=== PATIENT | male | born 1980 | race Caucasian/White ===

== ENCOUNTER 2017-05-30 14:56 | Emergency (ER) | payer OTHER ==
[2017-05-30] MEDS ORDERED: Tetan/Diph/Pertus SYR(Tdap)* 0.5 ML SYR(BOOSTRIX) use SYR IM ONE (16:11)
--- NOTE | 2017-05-30 16:19 | RAD ---
INDICATION: Crush injury LEFT hand. Laceration at the base of the second and third metacarpals. Also pain at the thumb. COMPARISON: No relevant prior exams available on the [facility] for comparison. TECHNIQUE: AP, lateral, and oblique views LEFT hand. REPORT: Normal articular alignment. No cortical disruption or suspicious trabecular irregularity to suggest fracture. Nonfocal soft tissue swelling about the wrist and metacarpal region of the hand as well as the thumb. No subcutaneous emphysema or conspicuous foreign body evident. IMPRESSION: Soft tissue swelling without additional finding.
[2017-05-30] MEDS ORDERED: Lidocaine 2% PF * 5 ML VIAL INJ ONE (17:01)
[2017-05-30 18:09] VITALS: BP 140/92
--- NOTE | 2017-05-30 18:56 | UC ---
Jacob Larios Benjamin, scribed for Waleska Acevedo MD on 05/30/17 at 1841 . Hand/Wrist HPI - HPI Summary HPI Summary: 37yo male presents with a left hand crush injury today around 14:30. 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 Pt was able to dodge his head and his right hand out of the way but his left hand got caught underneath, causing his crush injury on the left hand and the laceration to the dorsum of his hand. Last tetanus unrecalled. Denies other injury. - History Of Current Complaint Chief Complaint: UCUpperExtremity Stated Complaint: HAND INJURY Time Seen by Provider: 05/30/17 16:29 Hx Obtained From: Patient ?: No Onset/Duration: Lasting Hours - 3 hours, Still Present Severity Currently: Mild Pain Intensity: 2 Pain Scale Used: 0-10 Numeric Character Of Pain: Throbbing Aggravating Factor(s): Movement, Lifting, Flexion, Extension Alleviating: Nothing Associated Signs And Symptoms: Positive: Swelling - Allergies/Home Medications Allergies/Adverse Reactions: Allergies Allergy/AdvReac Type Severity Reaction Status Date / Time Bee Venom Allergy Severe Anaphylatic Verified 05/30/17 15:28 Shock [place] Allergy Severe GI ISSUE Uncoded 05/30/17 15:28 PMH/Surg Hx/FS Hx/Imm Hx - Additional Past Medical History Additional PMH: Hearing loss. Left ankle fracture. right middle finger injury s/p surgery. Previously Healthy: No - See Additional PMHx - Surgical History Surgical History: Yes Surgery Procedure, Year, and Place: TUBES IN EARS A CHILD. Left ankle - Family History Known Family History: Negative: Cardiac Disease, Hypertension, Diabetes - Social History Occupation: Employed Full-time Lives: With Family Alcohol Use: Occasionally Substance Use Type: None Smoking Status (MU): Light Every Day Tobacco Smoker Type: Cigarettes Amount Used/How Often: 1/2 PPD - Immunization History Most Recent Influenza Vaccination: unknown Review of Systems Constitutional: Negative Skin: Other - 3cm laceration on the left dorsum of the hand Eyes: Negative ENT: Negative Respiratory: Negative Cardiovascular: Negative Gastrointestinal: Negative Genitourinary: Negative Motor: Negative Neurovascular: Negative Musculoskeletal: Negative Neurological: Negative Psychological: Negative All Other Systems Reviewed And Are Negative: Yes Physical Exam Triage Information Reviewed: Yes Appearance: Well-Appearing, No Pain Distress, Well-Nourished Vital Signs: Initial Vital Signs Temp 98.6 F 05/30/17 15:21 Pulse 72 05/30/17 15:21 Resp 18 05/30/17 15:21 Pulse Ox 99 05/30/17 15:21 Vital Signs Reviewed: Yes Eyes: Positive: Conjunctiva Clear ENT: Positive: Hearing grossly normal. Negative: Muffled/hoarse voice Neck: Positive: Supple, Nontender Respiratory: Positive: Lungs clear, Normal breath sounds, No respiratory distress, No accessory muscle use Cardiovascular: Positive: RRR, No Murmur, Pulses Normal Musculoskeletal: Positive: Strength Intact, ROM Intact, Other: - UCL ligaments of left thumb intact with stress Neurological: Positive: Alert, Muscle Tone Normal Psychological: Positive: Age Appropriate Behavior Skin: Positive: Other - 3cm laceration on the left dorsum of the hand, 0.5cm lac to DIP of left thumb Procedures - Laceration/Wound Repair 1 Location: Other - left hand Description: Linear Anesthesia: 2.0% Length, Depth and Shape: 3cm laceration on the left dorsum of the hand at base of first metacarpal Betadine Prep?: Yes Irrigated w/ Saline (ccs): 100 Laceration/Wound Explored: contaminated - "grease" from the engine motor, no FB noted. No tendons visualized in wound, full ROM of fingers Closure: Multilayer Suture Type: Nylon - 4-0 nylon, Vicryl - 4-0 Number of Sutures: 10 - external Layer Closure?: Yes - 2 vicryl sutures Sterile Dressing Applied?: Yes Diagnostics - Radiology Left Hand XR Xray Interpretation: No Acute Changes - IMPRESSION: Soft tissue swelling without additional finding. Radiology Interpretation Completed By: Radiologist Hand/Wrist Course/Dx - Course Course Of Treatment: Reviewed pt's medications list and allergies. - Differential Dx/Diagnosis Differential Diagnosis/HQI/PQRI: Abrasion, Contusion, Fracture, Other - laceration Provider Diagnoses: Crush injury. Hand laceration with sutures. Tetanus update. Tobacco Abuse Disorder. Discharge - Discharge Plan Condition: Stable Disposition: HOME Prescriptions: Cephalexin CAP* [Keflex 500 CAP*] 500 mg PO QID #40 cap Patient Education Materials: Diphtheria/Acellular Pertussis/Tetanus Vaccine ( By injection), Care For Your Stitches (ED), Laceration (ED) Referrals: Chris Arellano MD [Medical Doctor] - 4 Days (definite f/u for crush injury to hand and sutures ) Connor Willis MD [Primary Care Provider] - Additional Instructions: You have two absorbable sutures and 10 nylon sutures. The nylon sutures need to be removed in 7-10 days. See the hand specialist, Dr. Arellano, on 06/03. Call tomorrow (Saturday05/31/17) to arrange this. Take the antibiotic, cephalexin, as directed. Elevate your hand, use ice for the first 48 hrs, and rest your hand as much as possible to decrease the swelling. Keep the wound dry , watch for infection. Change the dressing every day and keep the wound covered at all times. Use a small amount of antibiotic ointment on the wound. Return to urgent care if you are unable to see the hand specialist as directed, or if you develop worsening symptoms, and then return for the suture removal. Your tetanus status was updated with a Tdap, and is good for 10 years. The documentation as recorded by the Jacob alexis Benjamin accurately reflects the service I personally performed and the decisions made by , Waleska Acevedo MD.
== END 2017-05-30 18:10 | disposition home or self-care (01) ==
LOC: UCEAST 14:56
DX: S67.22XA Crushing injury of left hand, initial encounter (principal); S61.422A Laceration with foreign body of left hand, initial encounter; W31.89XA Contact with other specified machinery, initial encounter; Y93.89 Activity, other specified; Y92.89 Other specified places as the place of occurrence of the external cause; Y99.9 Unspecified external cause status; Z23 Encounter for immunization; F17.210 Nicotine dependence, cigarettes, uncomplicated
CPT/HCPCS: 12042; 12052; 13132; 90471; 90715; 99212; G0463

== ENCOUNTER 2017-06-07 07:09 | Emergency (ER) | payer OTHER ==
[2017-06-07 07:15] VITALS: BP 114/69
[2017-06-07] MEDS ORDERED: Benzoin Compound STICK ONE (07:15)
--- NOTE | 2017-06-07 07:45 | UC ---
HPI Wound/Suture Re-check - HPI Summary HPI Summary: LACERATION LEFT HAND REPAIRED 05/30/17. HERE FOR SUTURE REMOVAL. WOUND HEALING WELL. NO DRAINAGE. 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 HAS BEEN APPLYING A BULKY DRESSING DAILY TO PROTECT THE AREA. - History Of Current Complaint Chief Complaint: UCLaceration Stated Complaint: SUTURE REMOVAL Time Seen by Provider: 06/07/17 07:33 Hx Obtained From: Patient Severity: Mild Pain Intensity: 0 Pain Scale Used: 0-10 Numeric - Allergies/Home Medications Allergies/Adverse Reactions: Allergies Allergy/AdvReac Type Severity Reaction Status Date / Time Bee Venom Allergy Severe Anaphylatic Verified 06/07/17 07:15 Shock [place] Allergy Severe GI ISSUE Uncoded 06/07/17 07:15 PMH/Surg Hx/FS Hx/Imm Hx - Additional Past Medical History Additional PMH: HEARING LOSS - Surgical History Surgical History: Yes Surgery Procedure, Year, and Place: TUBES IN EARS A CHILD. Left ankle - Family History Known Family History: Positive: None Negative: Cardiac Disease, Hypertension, Diabetes - Social History Alcohol Use: Weekly Alcohol Amount: 1 drink weekly Substance Use Type: None Smoking Status (MU): Heavy Every Day Tobacco Smoker Type: Cigarettes Amount Used/How Often: 1/2 PPD - Immunization History Most Recent Influenza Vaccination: unknown Most Recent Tetanus Shot: 05/30/17 Review of Systems Constitutional: Negative Skin: Other - HEALING LACERATION Respiratory: Negative Cardiovascular: Negative Gastrointestinal: Negative All Other Systems Reviewed And Are Negative: Yes Physical Exam Triage Information Reviewed: Yes Appearance: Well-Appearing, No Pain Distress, Well-Nourished Vital Signs: Initial Vital Signs Temp 97.5 F 06/07/17 07:11 Pulse 60 06/07/17 07:11 Resp 16 06/07/17 07:11 BP 114/69 06/07/17 07:11 Pulse Ox 97 06/07/17 07:11 Vital Signs Reviewed: Yes Eyes: Positive: Conjunctiva Clear ENT: Positive: Hearing grossly normal Neck: Positive: Supple Respiratory: Positive: No respiratory distress, No accessory muscle use Cardiovascular: Positive: Pulses Normal Abdomen Description: Positive: Soft Musculoskeletal: Positive: No Edema Neurological: Positive: Alert Psychological: Positive: Age Appropriate Behavior Skin: Positive: Other - LACERATION BACK OF LEFT HAND C/D/I. NON TENDER. SLIGHT SURROUNDING ERYTHEMA. EDGES WELL APPROXIMATED. Course/Dx - Differential Dx - Laceration/Wound Provider Diagnoses: SUTURE REMOVAL LEFT HAND Discharge - Discharge Plan Condition: Stable Disposition: HOME Patient Education Materials: Stitches Removal (ED) Referrals: Connor Willis MD [Primary Care Provider] - If Needed Additional Instructions: THE STERISTRIPS WILL FALL OFF ON THEIR OWN IN THE NEXT 1-2 WEEKS. DO NOT PUT ANY OINTMENT ON TOP OF THEM. DO NOT SUBMERGE IN WATER FOR PROLONGED PERIOD OF TIME. OKAY FOR BRIEF SHOWER AFTER 24 HOURS AND THEN BE SURE TO DRY COMPLETELY.
== END 2017-06-07 07:40 | disposition home or self-care (01) ==
LOC: UCEAST 07:09
DX: Z48.02 Encounter for removal of sutures (principal); Z72.0 Tobacco use
CPT/HCPCS: 99212; G0463

== ENCOUNTER → 2018-12-12 10:12 | Day surgery (SDC) | payer BC ==
[~2018-12-12 10:12] MED LIST: Acetaminophen TAB* 325 MG PO PRN; Buffered Lidocaine 1% SYRIN* 1 ML/SYRINGE INTRADERM ONE; Bupivacaine 0.5% W/EPI SDV* 30 ML VIAL ONE; DiMENhydriNATE IV* 50 MG/ML VIAL IV PUSH PRN; Lactated Ringers 1000 ML Bag* 1,000 ML IV SCH; Lidocaine 2% PF * 5 ML VIAL ONE; Midazolam* 1 MG/ML 2 ML VIAL (2 MG) ONE; Naloxone* 0.4 MG/ML 1 ML VIAL IV PRN; Propofol* 10 MG/ML 20 ML BTL ONE; ceFAZolin 2 GM PREMIX in ORs 2 GM/50 ML BAG IVPB ONE; fentaNYL* 50 MCG/ML 2 ML VIAL (100 MCG VIAL) IV PRN; fentaNYL* 50 MCG/ML 2 ML VIAL (100 MCG VIAL) ONE; oxyCODONE TAB* 5 MG TAB ONE; oxyCODONE TAB* 5 MG TAB PO PRN
[2018-12-12 15:58] VITALS: BP 131/81
--- NOTE | 2018-12-15 00:21 | OP ---
DATE OF OPERATION: 12/12/18 [facility] DATE OF : 76 SURGEON: Dr. Sudarshan Shrestha. DRY KILN OPERATOR: TERRA Pimentel. A physician urgent care physician assistant was required for the length of the procedure for assistance with positioning, retraction, and closure. ANESTHESIOLOGIST: Dr. Batsheva Grewal. ANESTHESIA: General anesthesia, local anesthesia with approximately 10 cc of Marcaine 0.5% with epinephrine. PRE-OP DIAGNOSES: 1. Status post 11/09/16 open reduction internal fixation left ankle lateral malleolus fracture. 2. Possible incomplete union left ankle lateral malleolus fracture. 3. Painful hardware left ankle. POST-OP DIAGNOSES: 1. Status post 11/09/16 open reduction internal fixation left ankle lateral malleolus fracture. 2. Substantial bony union of left ankle lateral malleolus fracture, confirmed intraoperatively. 3. Left ankle painful hardware lateral malleolus. OPERATIVE PROCEDURE: 1. Removal of hardware, deep, left ankle lateral malleolus plate and screws. 2. Open treatment, evaluation of union of left ankle lateral malleolus fracture. ANTIBIOTICS: 2 g Ancef IV. IV FLUIDS: 800 cc crystalloid. TOURNIQUET TIME: 43 minutes at 300 mmHg with a thigh tourniquet. INFZ-SC-HNAZ TIME: 40 minutes. RADIATION EXPOSURE: Mini C-arm used for a total of 20 seconds with exposure of 9.02 mGy. COMPLICATIONS: None. SPECIMEN: Hardware was removed, a one third tubular plate with multiple locking and nonlocking 3.5 mm screws as well as a 4.0 mm screw as well as a screw placed, using lag technique across the fracture site previously. ESTIMATED BLOOD LOSS: Minimal. COMPLICATIONS: None. IMPLANTS: None. INDICATIONS FOR PROCEDURE: The patient is a 38-year-old man, a smoker, high volume, and also vitamin D deficient, was more than 2 years status post open reduction internal fixation of the left ankle lateral malleolus fracture. That procedure was done by myself. The patient has continued to have some pain and swelling about the left ankle since that procedure. For a long time, radiographs showed persistent lucency on the lateral x-ray view indicating delayed healing. I encouraged the patient to decrease his cigarette smoking. Eventually, I tested his serum vitamin D level, which was 29.4 and had the patient take vitamin D 5000 units daily for 3 months. The patient continued to have some discomfort even with x-ray showed decreased size of lucency in the of 2017. I obtained a CT scan on 10/27/18 which showed substantial bony healing at the fracture site, although there was still some lucency visible about the fracture line or some vestige of fracture line visibility. Radiologist and I agreed that the fracture was substantially healed by CT scan. Since the patient still had pain and swelling about the ankle site, we booked him for a removal of hardware surgery. I booked it as possible, though incredibly unlikely revision open reduction internal fixation with the use of bone graft. Initially, I was going to use iliac crest bone graft but then I changed my mind preoperatively and decided that I would use proximal tibial bone graft. The decision to revise the surgery would be based on an intraoperative open evaluation of the fracture site to determine the amount of union. Discussed risks and potential complications of procedure with the patient. The patient opted to go forward with surgery. DESCRIPTION OF PROCEDURE: The patient signed a written consent in preoperative holding. Operative extremity was marked in preoperative holding. The patient was taken back to the operating room and placed supine on the operating room table. Sedated and intubated. A tourniquet was placed around the left thigh. A blanket bump was placed under the left hemipelvis. The left lower extremity was prepped and draped. The left lower extremity was placed on a bone foam. Surgical time-out was performed. Esmarch was applied and the tourniquet was elevated to 300 mmHg. I made a surgical incision in the skin following most of the length of the prior surgical incision scar, exempting the distal aspect of that incision just distal to the tip of the distal fibula. I dissected down with a knife blade and dissection scissors to the plate and screws. I used periosteal elevator to debride the surface of the screw heads and the plates. I used curettes and rongeurs to do this as well. I used locking and nonlocking screwdrivers to remove all screws from the plate and then I removed the plate without difficulty. The screw head of the screw placed using lag technique from anterior to posterior across the fracture site was not immediately visible. I had to obtain some x-rays to determine the exact location of that screw head and still it took several minutes to find as it had been covered with bone, healing on top of it. I removed that lag screw. I probed around for a fracture site. I encountered a small defect about the medial most aspect of the distal fibula in a location about the fracture site that I could slip a Hustle elevator inside of. However, it only went into perhaps a 10% or 15% of the medial most aspect of the bone at that level. Elsewhere, the bone appeared fully healed with bony fusion. Fracture line not appreciated elsewhere. I was confident with this significant amount of bony healing such that a revision procedure was not required. I took some imaging films with the mini C-arm to confirm that all hardware had been removed. I performed an external rotation stress test to confirm no opening of any of the clear spaces indicating a stable ankle with a stable syndesmosis. I irrigated well the wound. I curetted out all the bone holes in the distal fibula. I debrided any fibrous tissue along the lateral aspect of the distal fibula. I closed a deep fascia layer overlying the bone with [id number] stitches using Vicryl 2-0 suture. This covered almost all of the plate. I then used buried simple stitches with Vicryl 3-0 suture in the subcutaneous tissue to close that layer. I then closed the skin with a running stitch using nylon 3-0 suture. I placed some local anesthesia, approximately 10 cc of 0.5% Marcaine with epinephrine proximal to the skin incision. I placed dressing consisting of Xeroform, 4x4's, sterile Webril, and Fabian bandage. I dropped tourniquet. We obtained a tall walking boot and placed the patient in it once he was taken to the PACU, which was the case after he was awakened and extubated. DISPOSITION: The patient was provided with tramadol to take as needed for pain control as well as a short course of Keflex, for 3 days for infection prophylaxis. He will be weightbearing as tolerated in that boot until he follows up in clinic with me 10 to 14 days postoperatively, then we will start the patient on normal activities of daily living, weaning him out of the boot but trying to avoid heavy contact sports for several months. I will give the patient the option of physical therapy to strengthen that left ankle. [id number]/[facility] #: [id number] LOTTIE
== END | disposition home or self-care (01) ==
LOC: OR 10:12
PROVIDERS: ATTEND Orthopaedic Surgery
DX: T84.84XA Pain due to internal orthopedic prosthetic devices, implants and grafts, initial encounter (principal); Y83.1 Surgical operation with implant of artificial internal device as the cause of abnormal reaction of the patient, or of later complication, without mention of misadventure at the time of the procedure; S82.62XD Displaced fracture of lateral malleolus of left fibula, subsequent encounter for closed fracture with routine healing; X58.XXXD Exposure to other specified factors, subsequent encounter; Y92.9 Unspecified place or not applicable; Z72.0 Tobacco use
CPT/HCPCS: 76000; 88300; A9270-GY; J0690; J2250; J2704; J3010

== ENCOUNTER 2019-06-26 15:26 | Emergency (ER) | payer BC ==
[2019-06-26 15:47] VITALS: BP 113/70
--- NOTE | 2019-06-26 16:24 | UC ---
Skin Complaint HPI - HPI Summary HPI Summary: 39-year-old male comes in with a chief complaint of a laceration to the right index finger. 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 There was minimal bleeding. Patient wonders if the friction of the blade was so hot that it cauterized. Patient has full range of motion full-strength no sensation deficit. Reports this started shot. - History of Current Complaint Chief Complaint: UCLaceration Time Seen by Provider: 06/26/19 16:01 Stated Complaint: FINGER INJURY Pain Intensity: 1 - Allergy/Home Medications Allergies/Adverse Reactions: Allergies Allergy/AdvReac Type Severity Reaction Status Date / Time bee venom protein (honey bee) Allergy Severe Anaphylatic Verified 06/26/19 15:48 Shock [place] Allergy Severe GI ISSUE, Uncoded 06/26/19 15:48 hives PMH/Surg Hx/FS Hx/Imm Hx Previously Healthy: Yes - Surgical History Surgical History: Yes Surgery Procedure, Year, and Place: TUBES IN EARS A CHILD. Left ankle ORIF 11/09/16 - Family History Known Family History: Positive: None Negative: Cardiac Disease, Hypertension, Diabetes - Social History Alcohol Use: Occasionally Alcohol Amount: 1 drink weekly Substance Use Type: None Smoking Status (MU): Light Every Day Tobacco Smoker Type: Cigarettes Amount Used/How Often: less than 1/2 PPD When Did the Patient Quit Smoking/Using Tobacco: will be using surgery as launch point to stop - Immunization History Most Recent Influenza Vaccination: unknown Most Recent Tetanus Shot: 05/30/17 Review of Systems All Other Systems Reviewed And Are Negative: Yes Constitutional: Positive: Negative Skin: Positive: Other - SEE HPI Eyes: Positive: Negative ENT: Positive: Negative Respiratory: Positive: Negative Cardiovascular: Positive: Negative Gastrointestinal: Positive: Negative Motor: Positive: Negative Neurovascular: Positive: Negative Musculoskeletal: Positive: Negative Neurological: Positive: Negative Psychological: Positive: Negative Is Patient Immunocompromised?: No Physical Exam Triage Information Reviewed: Yes Appearance: Well-Appearing, No Pain Distress, Well-Nourished Vital Signs: Initial Vital Signs Temp 99.0 F 06/26/19 15:42 Pulse 61 06/26/19 15:42 Resp 18 06/26/19 15:42 BP 113/70 06/26/19 15:42 Pulse Ox 98 06/26/19 15:42 Vital Signs Reviewed: Yes Eye Exam: Normal Eyes: Positive: Conjunctiva Clear Respiratory: Positive: No respiratory distress Skin: Positive: Other - Left index finger has a 1.2 cm partial thickness laceration that is 2 mm wide oriented longitudinally over the PIP joint. Normal capillary refill normal sensation and strength of the finger is full. No evidence of tendon injury on examination. There is no active bleeding. Course/Dx - Course Course Of Treatment: We discussed whether or not to suture the laceration. However stop bleeding at this time it appears to be cauterized and and possibly not full-thickness. Due to concern of the cautery of bleeding cauterized tissue inside sutured laceration with decided against suturing. He had full strength of the tendon so at this time I'm not concerned about tendon injury. However he did give him the name of the orthopedic hand surgeons that he would follow-up with them if there was any evidence of not having full recovery. Wound was cleaned and a metabolic ointment and nonstick dressing and a splint placed in clinic and patient neurovascular intact after placement of splint by nursing. Reevaluate sooner if worse or any questions or concerns. - Diagnoses Provider Diagnosis: Laceration of right index finger Discharge - Sign-Out/Discharge Documenting (check all that apply): Patient Departure All imaging exams completed and their final reports reviewed: No Studies - Discharge Plan Condition: Stable Disposition: HOME Patient Education Materials: Laceration Without Closure (ED) Referrals: Connor Willis MD [Primary Care Provider] - Additional Instructions: FOLLOW UP WITH THE ORTHOPEDIC HAND SPECIALIST IF NOT COMPLETELY IMPROVED OF ANY CONCERN OF TENDON INJURY. GET RECHECKED SOONER IF YOUR CONDITION WORSENS; SIGNS OF INFECTION OR TENDON INJURY OR ANY QUESTIONS OR CONCERNS. - Billing Disposition and Condition Condition: STABLE Disposition: Home
== END 2019-06-26 16:30 | disposition home or self-care (01) ==
LOC: UCEAST 15:26
DX: S61.210A Laceration without foreign body of right index finger without damage to nail, initial encounter (principal); W29.8XXA Contact with other powered hand tools and household machinery, initial encounter; Y93.9 Activity, unspecified; Y92.019 Unspecified place in single-family (private) house as the place of occurrence of the external cause; Y99.8 Other external cause status; F17.210 Nicotine dependence, cigarettes, uncomplicated
CPT/HCPCS: 99212; G0463